=== PATIENT | female | born 1950 | race Caucasian/White ===

== ENCOUNTER → 2023-11-29 13:52 | Outpatient (BNVA) | payer MEDICARE, SELFPAY | PROVIDERS: PCP Family Medicine; Visit Provider Nurse Practitioner Family | DX: I10 Essential (primary) hypertension (principal); R30.0 Dysuria; R10.9 Unspecified abdominal pain; N39.0 Urinary tract infection, site not specified; E78.00 Pure hypercholesterolemia, unspecified | CPT/HCPCS: 74018; 80053; 80061; 81015; 85025; 87086 ==

== ENCOUNTER → 2023-12-06 13:14 | Outpatient (BNVA) | payer MEDICARE, SELFPAY | PROVIDERS: PCP Family Medicine; Visit Provider Nurse Practitioner Family | DX: N39.0 Urinary tract infection, site not specified (principal) | CPT/HCPCS: 81003 ==

== ENCOUNTER → 2023-12-13 15:09 | Outpatient (BNVA) | payer MEDICARE, SELFPAY | PROVIDERS: PCP Family Medicine; Visit Provider Nurse Practitioner Family | DX: I10 Essential (primary) hypertension (principal); N39.0 Urinary tract infection, site not specified; R25.2 Cramp and spasm; R31.0 Gross hematuria; M54.9 Dorsalgia, unspecified | CPT/HCPCS: 80053; 81000; 81003; 83550; 83735; 84443; 85025; 87086 ==

== ENCOUNTER 2024-03-30 13:37 | Outpatient (CLI) | payer OTHER, MEDICAID, SELFPAY ==
--- NOTE | 2024-03-30 14:15 | US_ITS ---
WS: [id number] ULTRASOUND SOFT TISSUES LEFT neck/parotid gland. HISTORY: K11.8 - Other diseases of salivary glands COMPARISON: None available. TECHNIQUE: 2-D and color Doppler imaging is submitted. Ultrasound is performed of the LEFT neck near the parotid gland. Hypoechoic mass along the inferior p arotid gland measures 1.3 x 1.1 x 0.9 cm. This could potentially be external to the parotid gland. Th ere is some mild increased vascularity. Small cervical chain lymph node on the LEFT. US/US soft tissue head neck 32097 IMPRESSION: 1. Hypoechoic mass appears to be within the tail of the LEFT parotid gland wit h increased vascularity. Nonspecific in appearance. Differential includes benig n and malignant etiologies. Warthin's tumor or malignancy should be considered. For further evaluation consider neck CT with IV contrast.
== END 2024-03-30 13:38 | disposition home or self-care (01) ==
LOC: RAD 13:44
PROVIDERS: PCP Family Medicine; Visit Provider Family Medicine
DX: D37.030 Neoplasm of uncertain behavior of the parotid salivary glands (principal); R93.89 Abnormal findings on diagnostic imaging of other specified body structures
CPT/HCPCS: 76536

== ENCOUNTER 2024-04-20 12:44 | Outpatient (CLI) | payer MEDICARE, MEDICAID, SELFPAY ==
--- NOTE | 2024-04-20 12:45 | USCV_ITS ---
Adelina Sosa Age: 73 Gender: F : 1950 Exam Date: 04/20/2024 13:13 Ordering Phys: KULDIP Smith APRN Technologist: Steven Ralph Exam Location: [facility] – [place] Indication: syncope BP: 120 / 78 HR: 63 Rhythm: Sinus Technical Quality: Adequate MEASUREMENTS (Male / Female) Normal Values 2D ECHO LV Diastolic Diameter PLAX 4.8 cm 4.2 - 5.9 / 3.9 - 5.3 cm IVS Diastolic Thickness 1.3 cm 0.6 - 1.0 / 0.6 - 0.9 cm IVS Systolic Thickness 2.1 cm LVPW Diastolic Thickness 1.6 cm 0.6 - 1.0 / 0.6 - 0.9 cm LVPW Systolic Thickness 1.9 cm LVOT Diameter 2.1 cm LV Ejection Fraction 2D Teich 82.9 % LV Ejection Fraction MOD 4C 62.9 % LV Ejection Fraction MOD 2C 77.0 % LV Ejection Fraction 2C AL 78.3 % LA Diameter 3.2 cm RA Systolic Volume 4C AL 45.7 ml RA Systolic Volume 4C MOD 45.2 ml LA Sys Volume AL 59.9 cm cubed LA Sys Volume Index AL 27.5 cm cubed/m squared Aorta at Sinotubular Diameter 2.5 cm IVC Diameter 1.5 cm M-MODE LA Ao Ratio MM 1.3 AV Cusp Separation MM 1.4 cm DOPPLER AV Peak Velocity 138.0 cm/s LVOT Peak Velocity 97.0 cm/s AV Area Cont Eq vti 3.0 cm squared AV Area Cont Eq pk 2.4 cm squared MV Peak Velocity 82.0 cm/s MV Area PHT 4.3 cm squared Mitral E to A Ratio 1.4 TV Peak Velocity 309.5 cm/s TR Peak Velocity 376.0 cm/s TR Peak Gradient 56.6 mmHg TR Mean Velocity 321.0 cm/s TR Mean Gradient 43.5 mmHg TR Velocity Time Integral 80.2 cm PV Peak Velocity 111.3 cm/s RV Ejection Time 0.3 s FINDINGS Left Ventricle Left ventricle is normal in size. LV systolic function is normal with EF of 60-65%. No regional wall motion abnormalities are seen. Right Ventricle Normal in size and function Right Atrium Normal in size Left Atrium Normal in size Mitral Valve Structurally normal mitral valve. Mild mitral regurgitation. Aortic Valve Structurally normal aortic valve. No significant stenosis or regurgitation. Tricuspid Valve Mild tricuspid regurgitation. Insufficient TR jet to calculate RVSP Pulmonic Valve Mild to moderate pulmonic regurgitation Pericardium Normal Aorta Normal in size IVC Not well visualized CONCLUSIONS LV systolic function is normal with EF of 60-65%. Mild mitral regurgitation Mild tricuspid regurgitation Mild to moderate pulmonic regurgitation No comparison studies are available. Maxwell Love MD (Electronically Signed) Final Date: 21 April 2024 13:08 S
== END 2024-04-20 12:45 | disposition home or self-care (01) ==
LOC: RAD 12:48
PROVIDERS: PCP Family Medicine; Visit Provider Nurse Practitioner Family
DX: R93.0 Abnormal findings on diagnostic imaging of skull and head, not elsewhere classified (principal); R55 Syncope and collapse; G45.9 Transient cerebral ischemic attack, unspecified; I34.0 Nonrheumatic mitral (valve) insufficiency; I07.1 Rheumatic tricuspid insufficiency; I37.1 Nonrheumatic pulmonary valve insufficiency
CPT/HCPCS: 93306

== ENCOUNTER → 2024-04-26 13:35 | Outpatient (BNVA) | payer MEDICARE, MEDICAID, SELFPAY | PROVIDERS: PCP Family Medicine; Visit Provider Nurse Practitioner Family | DX: R06.02 Shortness of breath (principal); R39.9 Unspecified symptoms and signs involving the genitourinary system | CPT/HCPCS: 71046; 81003 ==

== ENCOUNTER 2024-09-25 05:00 | Outpatient (RCR) | payer MEDICARE, MEDICAID, SELFPAY | END 2024-10-25 23:59 | disposition home or self-care (01) | LOC: WPT 05:00 | PROVIDERS: PCP Family Medicine; Visit Provider Nurse Practitioner Family | DX: R42 Dizziness and giddiness (principal) | CPT/HCPCS: 97161 ==

== ENCOUNTER → 2024-09-26 16:28 | Outpatient (BNVA) | payer MEDICARE, MEDICAID, SELFPAY | PROVIDERS: PCP Family Medicine; Visit Provider Nurse Practitioner Family | DX: I10 Essential (primary) hypertension (principal); R55 Syncope and collapse; R42 Dizziness and giddiness; Z90.5 Acquired absence of kidney; E78.00 Pure hypercholesterolemia, unspecified; Z79.899 Other long term (current) drug therapy; D64.9 Anemia, unspecified; N02.9 Recurrent and persistent hematuria with unspecified morphologic changes; H66.93 Otitis media, unspecified, bilateral | CPT/HCPCS: 80053; 80061; 81003; 82306; 82728; 83036; 83550; 84443; 85025 ==